=== PATIENT | female | born 1970 | race Two or more races ===

== ENCOUNTER 2021-03-19 13:22 | Outpatient (CLI) | payer OTHER | END 2021-03-19 13:34 | disposition home or self-care (01) | LOC: RAD 13:22 | PROVIDERS: ATTEND Podiatrist | DX: M79.671 Pain in right foot (principal); M79.672 Pain in left foot ==

== ENCOUNTER 2024-07-13 14:41 | Outpatient (CLI) | payer OTHER | END 2024-07-13 14:50 | disposition home or self-care (01) | LOC: SONOGRAMA 14:41 | PROVIDERS: ATTEND Student in an Organized Health Care Education/Training Program | DX: M25.512 Pain in left shoulder (principal) ==